=== PATIENT | female | born 1940 | race Caucasian/White ===

== ENCOUNTER → 2025-03-14 15:04 | Outpatient (REF) | payer OTHER, SELFPAY | LOC: RAD 15:04 | PROVIDERS: ATTENDING PHYSICIAN Internal Medicine Cardiovascular Disease; FAMILY PHYSICIAN Family Medicine | DX: R06.00 Dyspnea, unspecified (principal) | CPT/HCPCS: 71046 ==

== ENCOUNTER → 2025-04-16 10:08 | Outpatient (REF) | payer OTHER, SELFPAY | LOC: HWRCS 10:08 | PROVIDERS: ATTENDING PHYSICIAN Internal Medicine Cardiovascular Disease; FAMILY PHYSICIAN Family Medicine | DX: R01.1 Cardiac murmur, unspecified (principal) | CPT/HCPCS: 93306 ==